=== PATIENT | female | born 1950 | race Caucasian/White ===

== ENCOUNTER 2020-05-04 13:31 | Emergency (ER) | payer OTHER | END 2020-05-04 17:49 | disposition short-term general hospital (02) | LOC: ED 13:31 | DX: S06.6X9A Traumatic subarachnoid hemorrhage with loss of consciousness of unspecified duration, initial encounter (principal); E78.5 Hyperlipidemia, unspecified; V29.9XXA Motorcycle rider (driver) (passenger) injured in unspecified traffic accident, initial encounter; Y93.89 Activity, other specified; Y92.89 Other specified places as the place of occurrence of the external cause; Y99.8 Other external cause status ==